=== PATIENT | female | born 1950 | race Caucasian/White ===

== ENCOUNTER 2023-08-07 21:33 | Emergency (ER) | payer SELFPAY ==
[~2023-08-07] VITALS: Ht 170 cm; Wt 74.0 kg
[2023-08-07 21:43] VITALS: TEMP 98
[2023-08-07 23:13] VITALS: BP 106/52; PULSE 65
== END 2023-08-07 23:13 | disposition home or self-care (01) ==
LOC: COL.ER 21:33 → EDBD 21:36 → COL.ER 23:13
DX: S63.502A Unspecified sprain of left wrist, initial encounter (principal); W01.0XXA Fall on same level from slipping, tripping and stumbling without subsequent striking against object, initial encounter